=== PATIENT | male | born 1975 | race Native Hawaiian/Other Pacific Islander ===

== ENCOUNTER 2018-03-01 00:48 | Emergency (ER) | payer OTHER ==
[~2018-03-01] VITALS: Ht 175.3 cm; Wt 90.7 kg
[2018-03-01 01:49] VITALS: BP 110/64; TEMP 97.4
== END 2018-03-01 01:49 | disposition home or self-care (01) ==
LOC: ED 00:48
DX: K02.9 Dental caries, unspecified (principal)
CPT/HCPCS: 96372; 99282; J0696; J1885